=== PATIENT | male | born 2000 | race Caucasian/White ===

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

== ENCOUNTER 2021-12-03 08:35 | Emergency (ER) | payer OTHER, SELFPAY ==
[2021-12-03] VITALS (11 sets, daily range): BP systolic 115–148; BP diastolic 61–67; PULSE 55–89; RESP 18–19; TEMP 37; O2SAT 97–100
--- NOTE | ~2021-12-03 | XR_ITS ---
XR finger 1st LT min 2V DATE: 12/03/2021 09:02 INDICATION: Smashed finger between trailer infiltrate or hemorrhage TECHNIQUE: 3 views COMPARISON: None FINDINGS: There is a comminuted fracture of the distal phalanx of the first digit. There is a linear fracture line of the base of the distal thighs, extending into the interphalangeal joint. There is a linear oblique fracture through the metaphysis and shaft of the distal phalanx with comple te anterior displacement of the distal fracture fragment. IMPRESSION: Comminuted anteriorly displaced fracture of the distal phalanx Reviewed, dictated and finalized at location A.
[2021-12-03] MEDS: TETANUS,DIPHTHERIA,AC PERTUSSIS ADULT (0.5 ML) BOOSTRIX IM (08:55)
[2021-12-03] MEDS: HYDROcodone/acetaminophen (*CRX) 5-325 MG TABLET 1 TAB PO (08:55)
--- NOTE | 2021-12-03 09:19 | ED.UPPEXIN ---
HPI - Extremity Injury (Upper) General Chief Complaint: Extremity Injury, Upper <Colin Dietrich MD - Last Filed: 12/03/21 12:25> Stated Complaint: injury to thumb on left hand <Colin Dietrich MD - Last Filed: 12/03/21 12:25> Time Seen by Provider: 12/03/21 08:39 <Colin Dietrich MD - Last Filed: 12/03/21 12:25> History of Present Illness HPI narrative: Patient is a 21-year-old male who presents ER with injury to the left thumb. He is attempting to connect a motorcycle trailer to a trailer hitch when it rolled and smashed his thumb. He has deformity distal to the DIP. He has decreased sensation over the dorsal aspect of the distal tip of the thumb but normal sensation over the tip. He has difficulty with extension due to the deformity. Unknown last tetanus shot. He is right-hand dominant. <Colin Dietrich MD - Last Filed: 12/03/21 12:25> Related Data Allergies/Adverse Reactions: Allergies Allergy/AdvReac Type Severity Reaction Status Date / Time No Known Allergies Allergy Verified 08/31/19 19:07 <Colin Dietrich MD - Last Filed: 12/03/21 12:25> Review of Systems Review of Systems: All systems reviewed & are unremarkable except as noted in HPI and below <Colin Dietrich MD - Last Filed: 12/03/21 12:25> Musculoskeletal: Musculoskeletal: Reports arthralgias and Reports joint swelling <Colin Dietrich MD - Last Filed: 12/03/21 12:25> Integumentary/Breasts: Skin/Breast: Denies erythema and Denies rash <Colin Dietrich MD - Last Filed: 12/03/21 12:25> Comments: Left thumb laceration <Colin Dietrich MD - Last Filed: 12/03/21 12:25> Neurologic: Denies syncope, Denies headache(s), Reports focal weakness and Reports numbness <Colin Dietrich MD - Last Filed: 12/03/21 12:25> PMFSH Past Medical History Medical History: Medical History (Updated 12/03/21 @ 12:24 by Colin Dietrich MD) Healthy adult male <Colin Dietrich MD - Last Filed: 12/03/21 12:25> Surgical History Surgical History: Surgical History History of circumcision <Colin Dietrich MD - Last Filed: 12/03/21 12:25> Social History Social History: Social History (Updated 08/31/19 @ 19:26 by Lucy Dunham MD) Smoking status: Never smoker Alcohol intake: never Substance use: current Substance use type: marijuana <Colin Dietrich MD - Last Filed: 12/03/21 12:25> Exam Narrative: GENERAL: Well-appearing, well-nourished, and in no acute distress. HEAD: Normocephalic, atraumatic. CHEST: Clear to auscultation. No respiratory distress. HEART: Regular rate and rhythm. Normal peripheral pulses. EXTREMITIES: Focused exam of the left thumb shows laceration distal to the DIP but proximal to the cuticle. Unable to extend this part of the thumb due to the deformity. Sharp touch decreased around the nailbed on the dorsal aspect but normal sensation over the fat pad of the thumb. Flexion intact. SKIN: Warm, dry, no rash. NEURO: Alert and oriented x3. PSYCH: Normal mood and affect. <Colin Dietrich MD - Last Filed: 12/03/21 12:25> Course Course Emergency Course: Discussed case with Dr. Onela. He would like the thumb irrigated and closed and then placed in a splint. He will then see the patient this week in clinic and schedule surgery for pinning. He would also like the patient to receive oral cephalexin 500 mg 3 times daily at home. <Colin Dietrich MD - Last Filed: 12/03/21 12:25> Vital Signs Vital signs: Vital Signs Temperature 98.6 F 12/03/21 08:45 Pulse Rate 89 12/03/21 08:45 Respiratory Rate 19 12/03/21 08:45 Blood Pressure 128/67 12/03/21 08:45 Pulse Oximetry 99 12/03/21 08:45 Oxygen Delivery Room Air 12/03/21 08:45 Temperature 98.6 F 12/03/21 08:45 Pulse Rate 55 L 12/03/21 12:12 Respiratory Rate 18 12/03/21 12:12 Blood Pressure 148/66 H
[2021-12-03] MEDS: ceFAZolin 2 GM/D5W 50 ML 2 GM/50 ML BAG IVPB (10:22)
== END 2021-12-03 12:20 | disposition home or self-care (01) ==
PROVIDERS: Emergency Provider Emergency Medicine; PCP Physician Assistant
DX: S62.522B Displaced fracture of distal phalanx of left thumb, initial encounter for open fracture (principal); W23.0XXA Caught, crushed, jammed, or pinched between moving objects, initial encounter; F12.90 Cannabis use, unspecified, uncomplicated; Z23 Encounter for immunization
CPT/HCPCS: 12002; 29130; 73140; 90471; 90715; 96365; 99284; A9270; J0690

== ENCOUNTER 2021-12-08 01:14 | Day surgery (SDC) | payer OTHER, SELFPAY ==
[2021-12-05 14:21] VITALS: BMI 27.4
--- NOTE | 2021-12-05 14:26 | PC.NURSE ---
Report to the Outpatient Waiting Room, entrance under the green pavilion located off [facility], at time 0700 on date 12/08/21. OR Time: 0900. Time changes happen often and if your time is changed the preop area will call you the afternoon before. - You and your visitor will be asked to self-screen and do not enter if you have any COVID symptoms. - Only one visitor and NO children visitors are allowed at this time. - The patient visitor is requested to leave or wait in car when not with patient due to restrictions. - A mask is required within the hospital. Patients may have clear liquids (water, carbonated beverages, clear teas, apple juice) until 3 hours prior to surgery with a maximum of 20 ounces. - No food from midnight until time of surgery Take the following medications with a SIP of water the morning of surgery: CEPHALEXIN, PAIN PILL IF NEEDED Medications to discontinue per physician: N/A Date to take last dose: N/A Please no make-up, nail kazakh, hairspray, perfume, deodorant, or body powder the day of surgery. No jewelry (including any body piercings) or valuables the day of surgery, leave them at home. Please take a shower or bath the night before, or the morning of, surgery with an antibacterial soap. Wear comfortable, loose fitting clothing. - Jewelry must be removed prior to entering the operating room. Rings and piercings that are not removed may be cut off. - The hospital will not accept responsibility for valuables. - Please leave all valuables, including medications, at home the day of surgery. If you are going home after surgery, a licensed dedicated driver must drive you home. - NO public transportation without another adult. - We recommend that an adult stay with you for 24 hours following discharge. - We also recommend that you do not drive, make important decision, drink alcoholic beverages, or take any drugs that were not prescribed by your health care provider for at least 24 hours after your discharge time. Follow any additional instructions given to you from your surgeon. If you or anyone in your household have experienced Covid symptoms in the past week, please notify your surgeon or the nurse liaison at the phone number below for possible testing. Telephone instructions given to PT Lucy MILAN and asked if any additional questions and then verbalized understanding. Patient advised to call surgeon office or pre surgery nurse liaison [phone] if any additional questions.
--- NOTE | 2021-12-07 12:54 | WPDANESEPPF ---
Anes - Initial Pre Proc Eval Procedure: Operation Date: 12/08/21 09:00 Proposed Procedures p Open or Closed Reduction with Internal Fixation Left Thumb Distal Phalanx - Catarino Oneal MD Date/Time: 12/07/21 12:54 Surgeon: Catarino Oneal MD Pre Op Diagnosis: open fx left thumb distal phalanx Patient Data Age: 21 Gender: M Height: 1.68 m Weight: 77.11 kg Allergies Allergy/AdvReac Type Severity Reaction Status Date / Time No Known Allergies Allergy Verified 12/08/21 06:40 Home Medications Medication Instructions Recorded Confirmed Type cephalexin 500 mg capsule 500 mg PO Q8H 14 days #42 caps 12/03/21 12/08/21 Rx hydrocodone 5 mg-acetaminophen 325 1 tablet PO Q6H PRN pain #20 tabs 12/03/21 12/05/21 Rx mg tablet Patient hx anesthesia problems: none Family hx anesthesia problems: none Results Review: All pre-operative results and documents have been reviewed as part of the pre-operative evaluation. [facility] Past Medical History Medical History (Updated 12/04/21 @ 00:00 by Dayton Poon) Healthy adult male Surgical History Surgical History History of circumcision Social History Social History (Updated 08/31/19 @ 19:26 by Lucy Dunham MD) Smoking status: Never smoker Alcohol intake: never Substance use: never Substance use type: does not use Living arrangements: with family Spiritual care concerns: No Anes - Eval Final PreProcedure Day of Procedure 12/07/21 12:54 Patient weight: overweight Heart: regular rate and rhythm Lungs: clear to auscultation Airway: Mallampati scale class II Neurological: alert and oriented Last oral intake: >/= 8 hours ASA classification: I Emergent: no Anesthetic plan: proceed Anesthesia type and monitoring: general GIVS and standard monitoring Results Review: All pre-operative results and documents have been reviewed as part of the pre-operative evaluation. Informed Consent: The patient's anesthetic plan and its attendant risks and benefits were discussed with the patient/family/POA. Questions were solicited and answers provided to the satisfaction of the patient/family/POA.
--- NOTE | ~2021-12-08 | XR_ITS ---
EXAMINATION: XR surgery orthopedic DATE: 12/08/2021 09:46 INDICATION: Left thumb fracture TECHNIQUE: 2 fluoroscopic images of the left thumb were obtained during procedure performed by Dr. Timmons. Radiologist was not present for the imaging or procedure. The amount of fluoroscopy time used du ring this procedure was 1.0 minutes. COMPARISON: None. FINDINGS: Interval reduction and percutaneous pin fixation of a comminuted intra-articular fracture of the left first distal phalanx. The 2 axially directed pins extending from the tuft of the distal phalanx acro ss the interphalangeal joint and into the proximal aspect of the proximal phalanx. Alignment is near- anatomic with no discernible fracture gap or incongruity at the articular cortex. No other fractures identified. IMPRESSION: 1. Near-anatomic alignment post reduction percutaneous pin fixation of a comminuted intra-articular f racture of the left first distal phalanx. Reviewed, dictated and finalized at location A. IMPRESSION: 1. Near-anatomic alignment post reduction percutaneous pin fixation of a commin uted intra-articular fracture of the left first distal phalanx.
[2021-12-08 06:40] VITALS: BP 144/78; PULSE 77; RESP 14; TEMP 37.1; O2SAT 100; BMI 26.9
[2021-12-08] MEDS: ACETAMINOPHEN 500 MG TABLET 1000 MG PO (07:05)
[2021-12-08] MEDS: LACTATED RINGERS 1,000 ML 30 ML IV CONT ×2 (07:10→10:12)
--- NOTE | 2021-12-08 07:11 | WPDHPUPDATE1 ---
History and Physical Update Update Date/Time: 12/08/21 07:11 History and Physical has been reviewed, including an updated exam of the patient. There are NO changes in the patient's condition. Risks, benefits, and alternatives have been discussed and questions answered. Patient agrees to proceed with procedure.
[2021-12-08] MEDS: KETOROLAC 15 MG/ML VIAL (*BKC) IV PUSH (07:16)
[2021-12-08] MEDS: ceFAZolin 2 GM/D5W 50 ML 2 GM/50 ML BAG IVPB (08:43)
[2021-12-08] MEDS: LIDO 1%/EPINEPHRINE 1:100,000 10 ML VIAL INFILTRATE (09:34)
[2021-12-08 09:47] VITALS: BP 85/40; PULSE 59; RESP 14; O2SAT 95
[2021-12-08 10:15] VITALS: BP 104/62; PULSE 52; RESP 16; O2SAT 98
--- NOTE | 2021-12-08 10:22 | W.PM.PROC2 ---
Procedure Note - Detailed Date of Procedure 12/08/21 Pre-op Diagnosis open fx left thumb distal phalanx Post-op Diagnosis Same Procedure Performed Closed reduction and internal C-wire fixation of a comminuted fracture of the distal phalanx left thumb Surgeon Catarino Oneal MD Migration Agent Nicanor Anesthesia MAC Indications Displaced comminuted fracture with laceration previously closed in the ER and nail injury Description of Procedure Marked in the holding area. The patient was taken to the operating room and placed supine on the operating table he was IV sedation. Left upper extremity draped in fashion. A time-out held and confirmed. The thumb was blocked % lidocaine epinephrine. No tourniquet was utilized. Patient's sutures remained which extended across the dorsum the distal phalanx at the level of nail fold. Couple of sutures were added to this to tighten up the repair. The C-arm was available to us and multiple images taken. A 0.035 in C-wire was driven distal to proximal under C-arm control this crosses the fracture into the base of the distal phalanx across the interphalangeal joint and into solid metaphyseal bone. The 2nd C-wire a 0.045 in was driven adjacent and parallel to the 1st. It was driven all the way to the base of the proximal phalanx. Images show adequate reduction of the several fractures and good placement of the pins. A soft bulky bandage was applied. He was discharged from the operating stable condition. He received 2 g of Ancef today. He has some antibiotics to finish up at home. He was also discharged today with a prescription for oxycodone 5/325 7. Estimated Blood Loss -1.00 Tourniquet Time 0 Drains No Packing No Pathology None sent Complications No immediate complications Condition Stable Disposition Same day
[2021-12-08 10:45] VITALS: BP 116/70; PULSE 62; RESP 16
[2021-12-08 11:06] VITALS: BP 117/60; PULSE 68; RESP 16
== END 2021-12-08 11:15 | disposition home or self-care (01) ==
PROVIDERS: PCP Physician Assistant; Visit Provider Plastic Surgery
PROC: (CPT 26756; principal; 2021-12-08 09:00)
DX: S62.522B Displaced fracture of distal phalanx of left thumb, initial encounter for open fracture (principal); X58.XXXA Exposure to other specified factors, initial encounter
CPT/HCPCS: 26756; 99199; A9270; C1713; J0690; J1885; J2250; J2704; J3010; J7120

== ENCOUNTER 2022-01-19 09:38 | Outpatient (CLI) | payer OTHER, SELFPAY ==
--- NOTE | ~2022-01-19 | XR_ITS ---
XR finger 1st LT min 2V 01/19/2022 09:59 Indication: Follow-up left thumb fracture status post intraoperative fixation Procedure: 3 views left first finger Comparison: 12/03/2021 Findings: Comminuted fracture left first distal phalanx transfixed by 2 K wires. Osteopenia. Fracture fragments in near-anatomic alignment. No foreign bodies in the soft tissues. Impression: 1: Near-anatomic alignment of comminuted fracture involving the left first distal phalanx transfixed by 2 K wires. Reviewed, dictated and finalized at location B. Impression: 1: Near-anatomic alignment of comminuted fracture involving the left first dist al phalanx transfixed by 2 K wires.
== END 2022-01-19 09:39 | disposition home or self-care (01) ==
LOC: ANHIMG 09:45
PROVIDERS: PCP Physician Assistant; Visit Provider Plastic Surgery
DX: S62.522D Displaced fracture of distal phalanx of left thumb, subsequent encounter for fracture with routine healing (principal); X58.XXXD Exposure to other specified factors, subsequent encounter
CPT/HCPCS: 73140

== ENCOUNTER 2022-05-19 10:38 | Emergency (ER) | payer OTHER, SELFPAY ==
--- NOTE | ~2022-05-19 | CT_ITS ---
EXAMINATION: CT brain wo con DATE: 05/19/2022 13:54 INDICATION: Fall with head injury TECHNIQUE: Computed tomography (CT) of the head was performed without intravenous contrast. Sagittal and coronal reconstructions were performed. The mA was adjusted according to patient size. Iterative reconstruction technique was employed. The dose-length product was 605.33 mGy-cm. COMPARISON: None FINDINGS: No fracture. No acute intracranial hemorrhage, acute infarction or abnormal extra axial fluid collect ion. Ventricles are normal and symmetric. No mass/mass effect. The orbits, paranasal sinuses and mast oid air cells are normal. IMPRESSION: 1. Normal head CT. Reviewed, dictated and finalized at location A. ENT EDUCATION SPECIALIST IMPRESSION: 1. Normal head CT.
--- NOTE | ~2022-05-19 | CT_ITS ---
EXAMINATION: CT cervical spine wo con DATE: 05/19/2022 13:54 INDICATION: Fall with head injury TECHNIQUE: Computed tomography (CT) of the cervical spine was performed without intravenous contrast. Automated exposure control and iterative reconstruction technique were employed. The dose-length pro duct was 360.69 mGy-cm. COMPARISON: None FINDINGS: Straightening of the normal cervical lordosis. No spondylolisthesis or facet subluxation. Vertebral b roderick and disc heights are normal. No fracture. Cervical facet and uncovertebral joints are normal. No neural foraminal or central canal stenosis. Cervical soft tissues are unremarkable. Visualized apices of the lungs are clear. IMPRESSION: 1. Straightening of the normal cervical lordosis which is likely positional but could be seen with mu scle spasm. No other osseous abnormalities. Reviewed, dictated and finalized at location A. STRY CONTRACTOR IMPRESSION: 1. Straightening of the normal cervical lordosis which is likely positional but could be seen with muscle spasm. No other osseous abnormalities.
--- NOTE | ~2022-05-19 | CT_ITS ---
EXAMINATION: CT abdomen pelvis wo con DATE: 05/19/2022 13:54 INDICATION: Nausea and vomiting. Flank pain. TECHNIQUE: Computed tomography (CT) of the abdomen and pelvis was performed without intravenous contr ast. Automated exposure control and iterative reconstruction technique were employed. The dose-length product was 343.48 mGy-cm. COMPARISON: None. FINDINGS: The visualized portions of the lung bases are clear without pneumonia or pleural effusion. The heart size is normal. No pericardial effusion. The liver, gallbladder, spleen, pancreas, adrenal glands, and kidneys are normal. There is no urolithiasis. There are no dilated loops of bowel. The ap pendix is normal. There are no pathologically enlarged lymph nodes. There is no free intraperitoneal fluid. There are chronic bilateral L5 pars defects. There is 3 mm anterolisthesis of L5 on S1. IMPRESSION: 1. No urolithiasis. Reviewed, dictated and finalized at location A. UTER AIDED DESIGN TECHNICIAN IMPRESSION: 1. No urolithiasis.
[2022-05-19 10:49] VITALS: BP 159/87; PULSE 56; RESP 16; TEMP 37.1; O2SAT 99
[2022-05-19 11:59] LABS: Basophils Percent Auto 0.3 % (0.2-1.2); Eosinophils Percent Auto 0.1 % (0-4.4); Hematocrit 47.1 % (42.0-52.0); Hemoglobin 16.6 g/dL (14.0-18.0); Immature Granulocyte Absolute 0.04 K/mm3 (0.00-0.031); Immature Granulocyte Percent A 0.3 % (0-0.5); Lymphocytes Absolute Auto 1.95 K/mm3 (0.9-3.2); Lymphocytes Percent Auto 16.3 % (18.3-44.2); Mean Corpuscular HGB Conc 35.2 g/dl (32-36); Mean Corpuscular Hemoglobin 30.1 pg (26-34); Mean Corpuscular Volume 85.3 fl (80-100); Mean Platelet Volume 10.1 fl (7.4-10.4); Monocytes Absolute Auto 0.8 K/mm3 (0.1-0.6); Monocytes Percent Auto 6.5 % (2.6-8.5); Neutrophils Absolute Auto 9.1 K/mm3 (1.3-6.7); Neutrophils Percent Auto 76.5 % (45.5-73.1); Platelet Count Result 299 k/mm3 (150-375); Red Blood Count 5.52 M/mm3 (4.6-6.20); Red Cell Distribution Width 12.6 % (11.5-14.5); White Blood Count 11.9 K/mm3 (4.5-10.0)
[2022-05-19 12:00] VITALS: PULSE 71; RESP 18; O2SAT 100
[2022-05-19 12:33] LABS: Appearance Urine Clear (Clear); Bacteria Urine None Seen /hpf; Bilirubin Urine Negative (Negative); Blood Urine Negative (Negative); Color Urine Dark Yellow (Yellow); Glucose Urine UA Negative (Negative); Ketones Urine 4+ mg/dL (Negative); Leukocyte Esterase Ur Negative LEU/UL (Negative); Nitrate Urine Negative (Negative); Protein Urine Trace mg/dL (Negative); Specific Grav Ur 1.035 (1.001-1.035); Squamous Epithelial Cell Urine None seen /hpf (Few); Urobilinogen Urine 0.2 mg/dL (<2.0); WBC Urine 0-5 /hpf
[2022-05-19 12:37] LABS: Mucus Urine Present /lpf
--- NOTE | 2022-05-19 12:43 | ED.GENADULT ---
HPI - General Adult General Chief complaint: Neck Pain/Injury Stated complaint: n/v, neck pain Time Seen by Provider: 05/19/22 12:35 Source: patient Mode of arrival: ambulatory Limitations: no limitations History of Present Illness HPI narrative: This is a 21-year-old male comes in with chief complaint of neck stiffness onset x 2 months and worse in the past week. Patient reports a head injury back in February and he was never seen for this. Denies any headache, however he has been having low-grade neck pain and stiffness since the injury. He was seen by chiropractor recently and notes no relief. Patient has secondary complaints of nausea and vomiting. This has been going on for the past week. States he has been trying to take Aleve for the pain but unable to as he has been vomiting. Reports he is not nauseous here in the department. Also reports occasional night sweats. Patient also notes right flank pain. Denies any urinary symptoms. Denies any recorded fevers or chills. Denies chest pain, shortness of breath, abdominal pain, numbness, weakness. Related Data Allergies Allergy/AdvReac Type Severity Reaction Status Date / Time No Known Allergies Allergy Verified 05/19/22 10:54 Review of Systems Review of Systems: CONSTITUTIONAL: Denies fever, chills, or sweats. EYES: Denies visual changes, redness, or discharge. ENT: Denies rhinorrhea, congestion, sore throat, or otalgia. CARDIOVASCULAR: Denies chest pain, palpitations, or edema. RESPIRATORY: Denies cough or dyspnea. GASTROINTESTINAL: Endorses right flank pain. Denies abdominal pain.endorses nausea, vomiting, and loose stools. (Resolved) GENITOURINARY: Denies dysuria or hematuria. SKIN: Denies rash or itching. MUSCULOSKELETAL: Denies back pain, joint pain, or myalgia. NEUROLOGIC: Endorses headache. endorses neck pain and stiffness. Denies numbness, dizziness, or weakness. PSYCHIATRIC: Denies anxiety or depression. [facility] Past Medical History Medical History (Updated 05/19/22 @ 14:48 by Jovon Leos PA-C) Healthy adult male Surgical History Surgical History History of circumcision Social History Social History (Updated 06/07/20 @ 19:26 by Lucy Dunham MD) Smoking status: Never smoker Alcohol intake: never Substance use: never Substance use type: does not use Living arrangements: with family Spiritual care concerns: No Exam Narrative: GENERAL: Well-appearing, well-nourished, and in no acute distress. HEAD: Normocephalic, atraumatic. EYES: PERRLA and EOMI. ENT: Nares clear, no rhinorrhea or epistaxis. Mucous membranes moist. Oropharynx without tonsillar hypertrophy exudate or other lesions. NECK: Supple. No adenopathy or masses. Kernig and Brudzinski signs are negative. CHEST: No respiratory distress. Clear to auscultation. No wheezes rales or rhonchi HEART: Regular rate and rhythm. No murmur heard. Normal peripheral pulses. ABDOMEN: Minimal right flank tenderness. Soft, nontender, nondistended, normal active bowel sounds. EXTREMITIES: Normal range of motion. No edema. SKIN: Warm, dry, no rash. NEURO: Alert and oriented x3. No focal deficits. PSYCH: Normal mood and affect. Course Course Emergency Course: Patient denies any medications for nausea or pain at this point. Vital Signs Vital signs: Vital Signs Temperature 98.7 F 05/19/22 10:49 Pulse Rate 56 L 05/19/22 10:49 Respiratory Rate 16 05/19/22 10:49 Blood Pressure 159/87 H 05/19/22 10:49 Pulse Oximetry 99 05/19/22 10:49 Oxygen Delivery Room Air 05/19/22 10:49 Temperature 98.7 F 05/19/22 10:49 Pulse Rate 84 05/19/22 15:25 Respiratory Rate 18 05/19/22 15:25 Blood Pressure 119/64 05/19/22 15:25 Pulse Oximetry 98 05/19/22 15:25 Oxygen Delivery Room Air 05/19/22 12:00 Medical Decision Making MDM Narrative Medical decision making narrative: This is a 21-year-old male who pres
[2022-05-19 12:54] LABS: Add Urine Microscopic? YES
[2022-05-19 13:04] LABS: Alanine Aminotransferase 24 U/L (6-50); Alkaline Phosphatase 112 U/L (38-126); Anion Gap 9 mmol/L (8-16); Aspartate Amino Transferase 29 U/L (17-59); Bilirubin,Total 0.6 mg/dL (0.2-1.3); Blood Urea Nitrogen 17 mg/dL (9-20); Calcium 9.4 mg/dL (8.4-10.2); Carbon Dioxide 25 mmol/L (22-30); Chloride 104 mmol/L (98-107); Estimated CRCL calculation 131 ml/min; Estimated Glomerular Filt Rate > 60; Glucose 94 mg/dL (65-110); Lipase 47 U/L (23-300); Sodium 138 mmol/L (137-145)
[2022-05-19 13:14] LABS: CRP < 0.5 mg/dL (<1.0)
[2022-05-19 15:25] VITALS: BP 119/64; PULSE 84; RESP 18; O2SAT 98
== END 2022-05-19 15:28 | disposition home or self-care (01) ==
PROVIDERS: Emergency Medicine; Emergency Provider Physician Assistant; PCP Internal Medicine Gastroenterology
DX: M54.2 Cervicalgia (principal); K52.9 Noninfective gastroenteritis and colitis, unspecified
CPT/HCPCS: 36415; 70450; 72125; 74176; 80053; 81001; 83690; 85025; 86140; 99284

== ENCOUNTER 2024-03-15 06:48 | Emergency (ER) | payer OTHER, SELFPAY ==
[2024-03-15 06:55] VITALS: BP 141/81; PULSE 85; RESP 16; TEMP 36.7; O2SAT 100
[2024-03-15 07:22] LABS: Alanine Aminotransferase 19 U/L (6-50); Alkaline Phosphatase 101 U/L (38-126); Anion Gap 10 mmol/L (4-12); Aspartate Amino Transferase 25 U/L (17-59); Bilirubin,Total 0.7 mg/dL (0.2-1.3); Blood Urea Nitrogen 18 mg/dL (9-20); Calcium 9.5 mg/dL (8.4-10.2); Carbon Dioxide 23 mmol/L (22-30); Chloride 106 mmol/L (98-107); Estimated CRCL calculation 106 ml/min; Estimated Glomerular Filt Rate > 60; Glucose 101 mg/dL (65-110); Lipase 347 U/L (23-300); Potassium 3.9 mmol/L (3.4-5.0); Sodium 139 mmol/L (137-145)
[2024-03-15 07:31] VITALS: BP 130/71; PULSE 63; RESP 12; O2SAT 97
[2024-03-15] MEDS: BELLADONNA ALK/PHENOB ELIX 10 ML, MAG HYDROX/ALUMINUM HYD/SIMETH 30 ML, LIDOCAINE 2% VI... PO (07:37)
[2024-03-15 08:39] VITALS: BP 125/73; PULSE 65; RESP 17; O2SAT 98
[2024-03-15 08:50] LABS: Add Urine Microscopic? YES; Appearance Urine Clear (Clear); Bacteria Urine None Seen /hpf; Bilirubin Urine Negative (Negative); Blood Urine Negative (Negative); Color Urine Yellow (Yellow); Glucose Urine UA Negative (Negative); Ketones Urine 2+ mg/dL (Negative); Leukocyte Esterase Ur Negative LEU/UL (Negative); Nitrate Urine Negative (Negative); Non Pathogenic Casts 0-2; Protein Urine 1+ mg/dL (Negative); RBC Urine 0-2 /hpf (0-2); Squamous Epithelial Cell Urine None Seen /hpf (Few); Urobilinogen Urine 0.2 mg/dL (<2.0); WBC Urine 0-5 /hpf (0-3); pH Urine 5.5 (5.0-9.0)
--- NOTE | 2024-03-15 09:28 | ED_ITS ---
HPI - Abdominal Pain General Chief Complaint: Abdominal Pain Stated Complaint: abdominal pain Time Seen by Provider: 03/15/24 07:05 History of Present Illness HPI narrative: Patient is a 23-year-old male who presents ER with epigastric fullness. Ongoing over last day. Associated with bloating and belching. Normal bowel movements. Has acidic taste coming up the back of his throat. Improved with simethicone when he took it but he only did that 1 time. No vomiting. No fevers or chills. Related Data Allergies Allergy/AdvReac Type Severity Reaction Status Date / Time No Known Allergies Allergy Verified 05/19/22 10:54 Review of Systems 2 Review of Systems: All systems reviewed & are unremarkable except as noted in HPI and below Constitutional: Constitutional: Reports no additional constitutional complaints ENT: Reports system reviewed and no additional complaints, except as documented Cardiovascular: Cardiovascular: Reports no additional cardiovascular complaints Respiratory: Respiratory: Reports no additional respiratory complaints Gastrointestinal: Gastrointestinal: Denies abdominal pain, Reports bloating, Reports heartburn, Denies nausea and Denies vomiting PMF Past Medical History Medical History (Updated 03/15/24 @ 09:34 by Colin Dietrich MD) Healthy adult male Surgical History Surgical History History of circumcision Social History Social History (Updated 08/31/19 @ 19:26 by Lucy Dunham MD) Smoking status: Never smoker Alcohol intake: never Substance use: never Substance use type: does not use Living arrangements: with family Spiritual care concerns: No Exam 2 Narrative: GENERAL: Well-appearing, well-nourished, and in no acute distress. HEAD: Normocephalic, atraumatic. ENT: Mucous membranes moist. CHEST: Clear to auscultation. No respiratory distress. HEART: Regular rate and rhythm. Normal peripheral pulses. ABDOMEN: Soft, nontender, nondistended, normal active bowel sounds. EXTREMITIES: Normal range of motion. No edema. SKIN: Warm, dry, no rash. NEURO: Alert and oriented x3. PSYCH: Normal mood and affect. Course Course Emergency Course: Improved with GI cocktail. Few ketones in urine. Otherwise CMP/ lipase unremarkable. Discharge home with supportive care/PPI. Vital Signs Vital signs: Vital Signs Temperature 98.1 F 03/15/24 06:55 Pulse Rate 85 12/21/24 06:55 Respiratory Rate 16 03/15/24 06:55 Blood Pressure 141/81 H 03/15/24 06:55 Pulse Oximetry 100 03/15/24 06:55 Oxygen Delivery Room Air 03/15/24 06:55 Temperature 98.1 F 03/15/24 06:55 Pulse Rate 65 03/15/24 08:39 Respiratory Rate 17 03/15/24 08:39 Blood Pressure 125/73 03/15/24 08:39 Pulse Oximetry 98 03/15/24 08:39 Oxygen Delivery Room Air 03/15/24 06:55 MDM - Abdominal Pain Lab Data 03/15/24 07:02 Labs: Lab Results 03/15/24 03/15/24 Range/Units 07:02 08:35 Sodium 139 (137-145) mmol/L Potassium 3.9 (3.4-5.0) mmol/L Chloride 106 (98-107) mmol/L Carbon Dioxide 23 (22-30) mmol/L Anion Gap 10 (4-12) mmol/L BUN 18 (9-20) mg/dL Creatinine 0.90 (0.7-1.3) mg/dL Estim Creat Clear Calc 106 ml/min Estimated GFR > 60 (59 - ) Glucose 101 (65-110) mg/dL Calcium 9.5 (8.4-10.2) mg/dL Total Bilirubin 0.7 (0.2-1.3) mg/dL AST 25 (17-59) U/L ALT 19 (6-50) U/L Alkaline Phosphatase 101 (38-126) U/L Total Protein 8.0 (6.3-8.2) g/dL Albumin 5.0 (3.5-5.1) g/dL Lipase 347 H (23-300) U/L Urine Color Yellow (Yellow) Urine Appearance Clear (Clear) Urine pH 5.5 (5.0-9.0) Ur Specific [place] 1.030 (1.001-1.035) Urine Protein 1+ H (Negative) mg/dL Urine Glucose (UA) Negative (Negative) mg/dL Urine Ketones 2+ H (Negative) mg/dL Ur Blood (Man) Negative (Negative) Urine Nitrate Negative (Negative) Urine Bilirubin Negative (Negative) Urine Urobilinogen 0.2 (<2.0) mg/dL Leukocyte Esterase Rfl Negative (Negative) DIONISIO/UL Urine RBC 0-2 (0-2) /hpf Urine WBC 0-5 (0-3) /hpf Ur Squamous Epith Cells None seen (Few) /hpf Urine Bacteria None seen /hpf Urine Casts 0-2 Discharge Plan Discharge Clinical Impression: GERD (gastroesophageal reflux disease) Patient Disposition: Home, Self-Care Condition: Stable Instructions: GERD (Gastroesophageal Reflux Disease) (ED) Additional Instructions: Return to the emergency department if you develop severe abdominal pain, severe nausea and vomiting to the point where you are unable to keep down fluids, if you develop chest pain or difficulty breathing, blood in your stool, dizziness or fainting, or if you develop any other new or concerning symptoms as these could be signs of more serious medical illness. Try to stay well hydrated. Patient Language: Turkmen Prescriptions: New simethicone 125 mg capsule 125 mg PO QID Qty: 20 0RF Rx Instructions: administer after meals and at bedtime pantoprazole 20 mg tablet,delayed release (DR/EC) 20 mg PO HS 28 Days Qty: 28 0RF No Action cephalexin 500 mg capsule 500 mg PO Q8H 14 Days Qty: 42 0RF hydrocodone-acetaminophen 5-325 mg tablet 1 tablet PO Q6H PRN (Reason: pain) Qty: 20 0RF oxycodone-acetaminophen 5-325 mg tablet 1 tablet PO Q6H MDD 6 PRN (Reason: pain) Qty: 7 0RF tizanidine 2 mg capsule 2 mg PO Q8H PRN (Reason: muscle spasticity) Qty: 30 0RF Follow-up/Referrals: Sreedhar,Angela Richards MD [Primary Care Provider] -
[2024-03-15 09:46] VITALS: BP 130/78; PULSE 61; RESP 18; TEMP 36.6; O2SAT 99
--- OUTSIDE RECORDS SUMMARY | 2024-03-22 03:22 | XMS_ITS | Encounter Summary ---
Author Organization [facility] Address [address] [place] [address] Care Team Providers Care Cook Chef Name Role Phone Michaelle Jolley COIN PURSE ASSEMBLER-BULK RECEIVER Primary Care Provider + Encounter Details Date Type Department Care Team (Latest Contact Info) Description 02/07/2011 9:02 AM LANDSCAPING AND GROUNDSKEEPING LABORER - 02/07/2011 11:59 PM LANDSCAPING AND GROUNDSKEEPING LABORER Hospital Encounter [facility] Pediatrics - Radiology [address] [place] [address] Discharge Disposition: Home or Self Care Social History Tobacco Use Types Packs/Day Years Used Date Smoking Tobacco: Never Assessed Sex and Gender Information Value Date Recorded Sex Assigned at Not on file Gender Identity Not on file Sexual Orientation Not on file documented as of this encounter Plan of Treatment Not on file documented as of this encounter Procedures Procedure Name Priority Date/Time Associated Diagnosis Comments XR CLAVICLE LEFT 2VW Routine 02/07/2011 9:07 AM LANDSCAPING AND GROUNDSKEEPING LABORER Fracture of left clavicle documented in this encounter Results * XR CLAVICLE LEFT 2 VIEWS (02/07/2011 9:07 AM LANDSCAPING AND GROUNDSKEEPING LABORER) Anatomical Region Laterality Modality Upper Extremity, Chest Radiograp hic Imaging 02/07/2011 9:20 AM LANDSCAPING AND GROUNDSKEEPING LABORER Impressions 02/07/2011 11:39 AM LANDSCAPING AND GROUNDSKEEPING LABORER Distal left clavicular fracture. D: Domingo Rivera M.D. Narrative 02/07/2011 11:39 AM LANDSCAPING AND GROUNDSKEEPING LABORER Left clavicle, 2 views 02/07/2011 History: Unspecified part of closed fracture of clavicle Two views of the left clavicle were obtained. Comparison is made to the right clavicle. There is a fracture of the distal left clavicle. There is inferior displacement of the distal fracture fragment. The acromioclavicular joints are grossly symmetric. The visible portions of the lungs are clear. A small left cervical rib is identified. Procedure Note Shari Reyes MD - 02/07/2011 Left clavicle, 2 views 02/07/2011 History: Unspecified part of closed fracture of clavicle Two views of the left clavicle were obtained. Comparison is made to the right clavicle. There is a fracture of the distal left clavicle. There is inferior displacement of the distal fracture fragment. The acromioclavicular joints are grossly symmetric. The visible portions of the lungs are clear. A small left cervical rib is identified. IMPRESSION Distal left clavicular fracture. D: Domingo Rivera M.D. Iain Keane MD DIAGNOSTIC IMAGING O RDERABLES documented in this encounter Visit Diagnoses Not on filedocumented in this encounter Care Teams Cook Chef Relationship Specialty Start Date End Date Michaelle Jolley, COIN PURSE ASSEMBLER-BULK RECEIVER [address] [place], [place] [id number] PCP - General 01/16/11 documented as of this encounter
--- OUTSIDE RECORDS SUMMARY | 2024-03-22 03:22 | XMS_ITS | Continuity of Care Document ---
Author Organization [facility] Address [address] [place] [address] [address] [place] [address] Phone Care Team Providers Care Wastewater Plant Operator Name Role Phone Quezada OD, Fab Unavailable Unavailable Procedures Procedure Date Eye Exam & Treatment Refraction Eye Exam, New Patient Advance Directives Directive Yes / No Effective Date File Name No Information Encounters Encounter Description Practice Location Reason(s) For Visit Diagnoses Date Provider Providers Copied on Encounter [facility], [address] [place] [address] [address], [place], [place], [id number], tel:[phone] [facility] No Information 3-200 9 Quezada OD Fab. [address] [facility] , [address], [place], [place], [facility], [place]. tel:[phone] [facility], [address] [place] [address] [address], [place], [place], [id number], tel:[phone] [facility] No Information 6-200 7 Quezada OD Fab. [address] [facility] , [address], [place], [address], [place]. tel:[phone] Family History Family Member Type Diagnosis Age At Onset No Information Payers Payer name Insurance type Covered republican ID Authoriza tion(s) Medicaid [facility] [id number] Social History Type Description Quantity Date Captured Comments Sex Male Smoking Status No Information Chief Complaint And Reason For Visit No Information Reason For Referral Reason For Referral No Information History Of Present Illness Encounter Date Complaint History Of Prese nt Illness No Information Functional Status Date Functional Assessmen t No Information Instructions Date Instruction Additional Infor mation No Information Assessments Type Assessment Date No Information Patient Care Teams Name Effective Dates (start - stop) Status Members No Information
--- OUTSIDE RECORDS SUMMARY | 2024-03-22 03:22 | XMS_ITS | Patient Health Summary ---
Author Organization [facility] Address [address] [place] [address] Care Team Providers Care Sephora Product Consultant Name Role Phone Michaelle Jolley NOVELTY TWISTER TENDER-SOLDER LEVELER PRINTED CIRCUIT BOARDS Primary Care Provider + Note from [facility],non-owned Affiliates and Associated Physician Practices is amultiple site organization consisting of ambulatory clinics and hospital sitesin [place], [place], [place] and [place]. This disclosure is being madepursuant to the Care Everywhere program and may not contain all information available regarding this patient. Last updated 17.[facility] Allergies No known active allergies Medications * Be aware that medications may not be up to date on this document. Alwaysverify current medications with the patient. * ibuprofen (MOTRIN) 200 MG tablet Take 400 mg by mouth every 6 hours as needed for Pain Active Problems Problem Noted Date Diagnosed Date Episodic tension-type headache, not intractable 08/31/2015 Social History Tobacco Use Types Packs/Day Years Used Date Smoking Tobacco: Never Alcohol Use Standard Drinks/Week Comments Not Asked 0 (1 standard drink = 0.6 oz pur e alcohol) Sex and Gender Information Value Date Recorded Sex Assigned at Not on file Gender Identity Not on file Sexual Orientation Not on file Last Filed Vital Signs Vital Sign Reading Time Taken Comments Blood Pressure 114/76 12/23/2015 10:36 AM CDT Pulse - - Temperature - - Respiratory Rate - - Oxygen Saturation - - Inhaled Oxygen Concentration - - Weight 63.4 kg (139 lb 12.4 oz) 016 10:36 AM CDT Height 163.5 cm (5' 4.37 ) 12/23/2015 1 0:36 AM CDT Body Mass Index 23.72 12/23/2015 10:36 AM CDT Procedures * IMAGING/RADIOLOGY/XRAY RESULTS ORDER(Performed 04/13/2011) * XR CLAVICLE LEFT 2VW(Performed 02/07/2011) Performed for Fracture of left clavicle Results * IMAGING/RADIOLOGY/XRAY RESULTS ORDER (04/13/2011 8:55 PM TRACKMOBILE OPERATOR) Anatomical Region Laterality Modality Other Narrative Transcriptions Document, Scanned - 04/13/2011 8:55 PM CST Scanned Document IMAGING * XR CLAVICLE LEFT 2 VIEWS (02/07/2011 9:07 AM TRACKMOBILE OPERATOR) Anatomical Region Laterality Modality Upper Extremity, Chest Radiograp hic Imaging 02/07/2011 9:20 AM TRACKMOBILE OPERATOR Impressions 02/07/2011 11:39 AM TRACKMOBILE OPERATOR Distal left clavicular fracture. D: Domingo Rivera M.D. Narrative 02/07/2011 11:39 AM TRACKMOBILE OPERATOR Left clavicle, 2 views 02/07/2011 History: Unspecified [...] Iain Keane MD DIAGNOSTIC IMAGING O RDERABLES Care Teams Sephora Product Consultant Relationship Specialty Start Date End Date Michaelle Jolley, NOVELTY TWISTER TENDER-SOLDER LEVELER PRINTED CIRCUIT BOARDS [address] [place] [address] PCP - General 01/16/11
--- OUTSIDE RECORDS SUMMARY | 2024-03-22 03:22 | XMS_ITS | Clinical Summary ---
Author Organization [facility] Address [address] [place] [address] Care Team Providers Care Patrol Community Service Officer Name Role Phone Michaelle Jolley STEEL POST INSTALLER SUPERVISOR-LOAD BUILDER Primary Care Provider + Source Comments [facility],non-owned Affiliates and Associated Physician Practices is amultiple site organization consisting of ambulatory clinics and hospital sitesin [place], [place], [place] and [place]. This disclosure is being madepursuant to the Care Everywhere program and may not contain all information available regarding this patient. Last updated 17.[facility] Allergies No known active allergies Medications * Be aware that medications may not be up to date on this document. Alwaysverify current medications with the patient. Medication Sig Dispensed Refills Start Date End Date Status ibuprofen (MOTRIN) 200 MG tablet Take 400 mg by mouth every 6 hours as needed for Pain Active Active Problems Problem Noted Date Diagnosed Date Episodic tension-type headache, not intractable 08/31/2015 Overview (12/23/2015): Headaches that were more frequent during last school year (starting around Mar) and infrequent since the school ended and since then have not returned during this school year. Headaches without any migrainous character, localized to top of head, were severe enough to interfere with his functioning. Lifestyle factors were likely contributing to his headaches- inadequate sleep, stress, missing meals and dehydration. His neurological exam is normal and non focal. Taken together the headaches were secondary to stress. No concern for secondary causes of headache or other primary headache disorders Plan- ?? Lifestyle changes stressed ?? Parents to call with concerns Family History Medical History Relation Name Comments Cancer - Colon Father Migraine Father no longer has h eadaches, never took daily preventative medication Migraine Mother Takes daily Top amax Migraine Sister 2 Takes daily pre ventative medication, different then mom's Relation Name Status Comments Father Alive Mother Alive Sister 1 Alive Sister 2 Social History Tobacco Use Types Packs/Day Years [...] Mass Index 23.72 12/23/2015 10:36 AM CDT Plan of Treatment Health Maintenance Due Date Last Done Comments HIV SCREENING 2016 HPV VACCINE (1 - Male 3-dose series) 2016 HEPATITIS C SCREENING 06/13/2019 DTAP/TDAP/TD VACCINES (1 - Tdap) 2020 HEPATITIS B VACCINE (1 of 3 - 19+ 3-dose series) 2020 DEPRESSION SCREENING 03/26/2023 COVID-19 VACCINE (1 - 2023-2 5 season) 2023 INFLUENZA VACCINE (#1) 2023 ZOSTER VACCINE (1 of 2) 06/18/2051 HIB VACCINE Aged Out No longer eligi ble based on patient's age to complete this topic MENINGOCOCCAL VACCINE Aged Out No charles mansi eligible based on patient's age to complete this topic PNEUMOCOCCAL VACCINE Aged Out No long er eligible based on patient's age to complete this topic Care Teams Patrol Community Service Officer Relationship Specialty Start Date End Date Michaelle Jolley, STEEL POST INSTALLER SUPERVISOR-LOAD BUILDER [facility] [place] [address] PCP - General 01/16/11
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
--- OUTSIDE RECORDS SUMMARY | 2024-03-22 03:22 | XMS_ITS | Encounter Summary ---
Author Organization [facility] Address [address] [facility] [place] [address] Care Team Providers Care Recreation Therapy Director Name Role Phone Michaelle Jolley DELIVERER FOOD-PRODUCTION LINE ASSEMBLER Primary Care Provider + Reason for Visit * Reason Comments Headache c/o headaches for a couplke months, was c/o headaches everyday, stoppd a couple weeks ago Encounter Details Date Type Department Care Team (Latest Contact Info) Description 09/23/2015 8:31 AM CDT - 09/23/2015 11:59 PM CDT Hospital Encounter [facility] Pediatrics - Neurology [address] [place] [phone] Flavio Melendez MD [address] [place] [phone] Discharge Disposition: Home or Self Care Social History Tobacco Use Types Packs/Day Years Used Date Smoking Tobacco: Never Alcohol Use Standard Drinks/Week Comments Not Asked 0 (1 standard drink = 0.6 oz pur e alcohol) Sex and Gender Information Value Date Recorded Sex Assigned at Not on file Gender Identity Not on file Sexual Orientation Not on file documented as of this encounter Last Filed Vital Signs Vital Sign Reading Time Taken Comments Blood Pressure 110/60 09/23/2015 8:45 AM CDT Pulse - - Temperature - - Respiratory Rate - - Oxygen Saturation - - Inhaled Oxygen Concentration - - Weight 61.1 kg (134 lb 11.2 oz) 09/23/2015 8:45 AM CDT Height 162.1 cm (5' 3.82 ) 09/23/2015 8:45 AM CD T Body Mass Index 23.25 09/23/2015 8:45 AM CDT Body Mass Index Percentile 86.97% 09/23/2015 8:4 5 AM CDT Growth Chart: CDC (Boys, 2-2 0 Years) documented in this encounter Discharge Instructions * Patient Instructions* Flavio Melendez MD - 09/23/2015 9:45 AM CDT 1. Maintain good sleep hygiene and a regular schedule. 2. Regular meals, do not miss breakfast. 3. Take plenty of fluids. 4. Avoid caffeine in any form. 5. establish a regular exercise schedule. documented in this encounter Medications at Time of Discharge Medication Sig Dispensed Refills Start Date End Date ibuprofen (MOTRIN) 200 MG tablet Take 400 mg by mouth every 6 hours as needed for Pain documented as of this encounter H&P Notes * Flavio Melendez MD - 09/23/2015 10:06 AM CDT Patient Name: Harlan Velez III : 2000 Date Seen: 09/23/2015 Chief Complaint: Harlan is a 15 y.o. male who was referred by his PCP, Dr Michaelle Jolley, ERLINDA for a consultation regarding concerns for chronic headaches . The child is accompanied to this evaluation today by his mother, who provided the history. Records, including information provided on the intake form, were reviewed prior to visit and are included in this evaluation. History: Harlan started having headaches at the start of this new year. He was having them frequently, almost daily and he would need to sleep and take some medication to get over the pain. It was interfering With his ability to function when he returned home from school. The headaches start usually late in afternoon and get worse when he returns home. They are located over the top of head, are moderate in intensity, feel like pressure, not associated with nausea, vomiting or light/sound sensitivity. They last for hours and relieved by rest or ibuprofen. Since the school ended, he has experienced infrequent headaches- once every few weeks. He is fairly active person, but does not take his breakfast when he is going to school, is not drinking enough water and does not sleep enough at night. He usually gets 6 hrs or less of sleep. He avoids caffeine in all forms Review of Systems: Constitutional: Negative for fatigue, weight loss, weight gain, malaise. Eyes: Negative for scotomata bilaterally, double vision, visual loss bilaterally, glasses or contacts Ears, nose, mouth, and throat: Negative for hearing loss bilaterally, deafness bilaterally, tinnitus bilaterally, ear drainage bilaterally, sinus trouble Respiratory: Negative for shortness of breath, dyspnea on exertion, chronic cough, asthma Cardiovascular: Negative for palpitations, tachycardia, near-syncope, syncope, chest pain, fatigue,cyanosis Gastrointestinal: Negative for poor appetite, dysphagia, nausea, vomiting, epigastric pain, change in bowel habits Genitourinary:Negative for incontinence, dysuria, urinary tract infection Skin: Negative for pigmentation, rash, new lesion, lumps or bumps, hair changes Hematologic/lymphatic: Negative for anemia, bleeding disorder, fever, weight loss, swollen nodes Behavioral/Psych: Negative for depressed mood, cycling mood, crying spells, difficulty falling asleep, anxiety, impaired concentration Endocrine: Negative for thyroid nodule, cold intolernance, heat intolerance, polyphagia, polydipsia, polyuria, hair loss, skin dryness Current Outpatient Prescriptions Medication Sig Dispense Refill ??? ibuprofen (MOTRIN) 200 MG tablet Take 400 mg by mouth every 6 hours as needed for Pain No current facility-administered medications for this encounter. No Known Allergies Past Medical History No history on file. Past Medical History Diagnosis Date ??? Concussion neg hx ??? Asthma neg hx No past surgical history on file. Family History Family History Problem Relation Age of Onset ??? Migraine Mother Takes daily Topamax ??? Migraine Sister 15 Takes daily preventative medication, different then mom's ??? Migraine Father no longer has headaches, never took daily preventative medication ??? Cancer Colon Father 43 There is otherwise no family history of: developmental delay, learning problems, ADHD, autism, mental health disorders, genetic disorders, defects, multiple miscarriages, motor disorders. Social History History Social History Narrative Lives at home with Mom, Dad, and Sister. Going into 9th grade, performed well in 8th grade. Unsure of future goals/college. No summer plans. Spends time riding his bicycle and playing video games. Vital Signs: BP 110/60 mmHg Wt 61.1 kg (134 lb 11.2 oz) BMI 23.25 kg/m2 Head Circumference: No head circumference on file for this encounter. General: well developed, well nourished CV: RRR Resp: CTAB Abdomen: S, NT, BS+ Extr: No edema, +2 pulses Neurological Exam: MS: awake, alert, appropriate Cranial Nerves: II: Visual brown intact, Fundoscopic exam normal III:PERRLA III,IV,: EOMI, no nystagmus V: Facial sensation intact VII: Facial expressions symmetric VIII: Hearing intact to finger rub bilaterally IX: Palate elevates symmetrically X: Uvula midline XI: Shoulder shrug strong bilaterally XII: Tongue protrudes midline Motor: Abnormal Movements: none Bulk: normal Tone: normal Reflexes: 2+ throughout, plantar reflexes downgoing Strength: 5/5 in all extremities Sensory: Intact to light touch, pin prick, temperature and vibration Cerebellar: Normal FNF, RAJESH's, no dysdiadochokinesia, steady in Romberg stance Gait: Normal toe/heel/tandem walk Labs: none EEG: none Imaging: none Problem Episodic Tension-Type Headache, Not Intractable Headaches had been more frequent during school year (starting around Mar) and infrequent since the school ended. Also his headaches do not have any migrainous character and localized to top of head even though severe enough to interfere with his functioning. Lifestyle factors were likely contributing to his headaches- inadequate sleep, stress, missing meals and dehydration. His neurological exam is normal and non focal Plan- ?? Lifestyle changes discussed ?? No need for prophylaxis, if needed, will use topiramate or nortriptyline ?? No need for imaging ?? Parents to call with concerns Follow up: 6 month(s) Education: headache precautions This information has been fully discussed with his mother and child and all their questions were answered. I would like to thank you for refrring Harlan Velez III to our neurology clinic. If you have anyquestions, please call [phone]. Sincerely, Flavio Melendez MD 09/23/2015 10:06 AM documented in this encounter Plan of Treatment Not on file documented as of this encounter Visit Diagnoses Diagnosis Tension headache- Primary Episodic tension-type headache, not intractable Episodic tension type headache documented in this encounter Care Teams Recreation Therapy Director Relationship Specialty Start Date End Date Michaelle Jolley, DELIVERER FOOD-PRODUCTION LINE ASSEMBLER [address] [place] [address] PCP - General 01/16/11 documented as of this encounter
--- OUTSIDE RECORDS SUMMARY | 2024-03-22 03:22 | XMS_ITS | Encounter Summary ---
Author Organization [facility] Address [address] [facility] [address] Care Team Providers Care Linen Room Supervisor Name Role Phone Michaelle Jolley MUSHROOM GROWER-RECYCLING ATTENDANT Primary Care Provider + Reason for Visit * Reason Comments Follow-up left clavicle Encounter Details Date Type Department Care Team (Latest Contact Info) Description 02/07/2011 8:53 AM BLINDSTITCH LINING FELLER - 02/07/2011 9:01 AM BLINDSTITCH LINING FELLER Hospital Encounter [facility] Pediatrics - Orthopedics [address] [place] [phone] Светлана Chilel MD Orthopedics Discharge Disposition: Home or Self Care Social History Tobacco Use Types Packs/Day Years Used Date Smoking Tobacco: Never Assessed Sex and Gender Information Value Date Recorded Sex Assigned at Not on file Gender Identity Not on file Sexual Orientation Not on file documented as of this encounter Discharge Instructions * Patient Instructions* Santiago Moreno DO - 02/07/2011 9:17 AM BLINDSTITCH LINING FELLER Encounter Diagnoses Name Primary? Fracture of left clavicle Return appointment: As needed Call [phone], option 1, for return if your child has new symptoms or problems, or if you have concerns. Call [phone] for questions. Physicians orders: none Medications prescribed: none Activity Restrictions: No sports or PE for 3 weeks, then may return to activities as tolerated School/Work Excuse: Patient had an appointment 02/07/2011 DSTITCH LINING FELLER documented in this encounter Progress Notes * Светлана Chilel MD - 02/07/2011 9:16 AM CST Pediatric Orthopedic Clinic Note 02/07/2011 HISTORY: Harlan Velez III is a 10 y.o. 7 m.o. male who presents 3.5 week(s) status post a left clavicle fracture. Harlan Velez III has been treated with nothing and presents today for follow up evaluation. The patient rates his pain as a 0 out of 10. The patient denies new onset of numbness inhis upper extremities. No shoulder pain or limitations in motion. PHYSICAL EXAM: Patient is well-developed, well-nourished and in no acute distress. Examination of the upper extremities shows the skin to be intact. On the affected side, there is no tenting of the skin. The patient is non tender at the clavicle, palpable bump. ROM of the shoulder on the affected side is limited in flexion overhead when compared to the contralateral side. The distal neurovascularexamination is intact in the upper extremities. All fine motor control is intact in the hand - Ableto make an OK, cross fingers, [id number], finger abduction, thumb extension. Sensory to light touch throughout all fingers. RADIOGRAPHS: Two views of the left clavicle show midshaft oblique fracture, shortened <1 cm withbridging callus. ASSESSMENT: left clavicle fracture. PLAN: We recommend the patient discontinue the sling at this time. The patient can resume weight bearing on the affected upper extremity. The patient may resume PE/sports as tolerated in 3 week(s). The patient will follow up only as needed. They will call in the interim with questions or concerns. I have personally seen and evaluated the above patient with the resident. I have discussed the results of the physical exam and all studies with the patient and family. I developed the above plan of care and discussed it with the patient. I have revised the above note and agree with the resident's assessment and plan of care. DSTITCH LINING FELLER documented in this encounter Procedure Notes * Document, Scanned - 04/13/2011 8:55 PM CSTAssociated Order(s): IMAGING/RADIOLOGY/XRAY RESULTS ORDER DSTITCH LINING FELLER documented in this encounter Miscellaneous Notes * Miscellaneous Scans - Document, Scanned - 03/30/2011 10:20 AM CST DSTITCH LINING FELLER * Miscellaneous Scans - Document, Scanned - 03/08/2011 6:03 PM CST DSTITCH LINING FELLER documented in this encounter Plan of Treatment Not on file documented as of this encounter Procedures Procedure Name Priority Date/Time Associated Diagnosis Comments IMAGING/RADIOLOGY/X RAY RESULTS ORDER 04/13/2011 8:55 PM BLINDSTITCH LINING FELLER XR CLAVICLE LEFT 2VW Routine 02/07/2011 9:07 AM BLINDSTITCH LINING FELLER Fracture of left clavicle documented in this encounter Results * IMAGING/RADIOLOGY/XRAY RESULTS ORDER (04/13/2011 8:55 PM BLINDSTITCH LINING FELLER) Anatomical Region Laterality Modality Other Narrative Transcriptions Document, Scanned - 04/13/2011 8:55 PM CST Scanned Document IMAGING * XR CLAVICLE LEFT 2 VIEWS (02/07/2011 9:07 AM BLINDSTITCH LINING FELLER) Anatomical Region Laterality Modality Upper Extremity, Chest Radiograp hic Imaging 02/07/2011 9:20 AM BLINDSTITCH LINING FELLER Impressions 02/07/2011 11:39 AM BLINDSTITCH LINING FELLER Distal left clavicular fracture. D: Domingo Rivera M.D. Narrative 02/07/2011 11:39 AM BLINDSTITCH LINING FELLER Left clavicle, 2 views 02/07/2011 History: Unspecified [...] M.D. Iain Keane MD DIAGNOSTIC IMAGING O ESTRELLITA documented in this encounter Visit Diagnoses Diagnosis Fracture of left clavicle Unspecified part of closed fracture of clavicle documented in this encounter Care Teams Linen Room Supervisor Relationship Specialty Start Date End Date Michaelle Jolley, MUSHROOM GROWER-RECYCLING ATTENDANT [address] [place], [place] [id number] PCP - General 01/16/11 documented as of this encounter
--- OUTSIDE RECORDS SUMMARY | 2024-03-22 03:22 | XMS_ITS | Encounter Summary ---
Author Organization [facility] Address [address] [place] [address] Care Team Providers Care Operations Engineer Name Role Phone Michaelle Jolley SUPERVISOR HARVESTING-CONTACT CENTER PROFESSIONAL Primary Care Provider + Reason for Visit * Reason Comments Headache Encounter Details Date Type Department Care Team (Latest Contact Info) Description 12/23/2015 10:28 AM CDT - 12/23/2015 11:59 PM CDT Hospital Encounter [facility] Pediatrics - Neurology [address] [place] [address] Flavio Melendez MD [address] [place] [phone] Discharge Disposition: Home or Self Care [...] Mass Index 23.72 12/23/2015 10:36 AM CDT Body Mass Index Percentile 88.12% 12/22 10:36 AM CDT Growth Chart: [facility] (Boys, 2-2 0 Years) documented in this encounter Medications at Time of Discharge Medication Sig Dispensed Refills Start Date End Date ibuprofen (MOTRIN) 200 MG tablet Take 400 mg by mouth every 6 hours as needed for Pain documented as of this encounter Progress Notes * Flavio Melendez MD - 12/23/2015 10:49 AM CDT Images from the original note were not included. Patient Name: Harlan Velez III : 2000 Date Seen: 12/23/2015 Chief Complaint: Harlan is a 15 y.o. male who is followed in Neurology clinic for headaches. The child is accompanied to this evaluation today by his mother, who provided the history. Interval History: Harlan has been headache free since the last clinic visit and even after starting school, they have not returned. Review of Systems: General:negative for - fever, fatigue, malaise, night sweats, sleep disturbance Allergy: negative for - asthma, persistent nasal stuffiness or acute or chronic ear discharge Hematological: negative for - bleeding problems, easy bruising, jaundice, pallor, swollen lymph nodes Respiratory: no cough, shortness of breath, or wheezing Cardiovascular: no chest pain or dyspnea on exertion Psychological: negative for - hallucinations, illusions, depressed mood, not taking interest in daily activities, Rheumatological: negative for - weakness,gait disturbance, joint pain Past medical history- Information unchanged and/updated since the last visit on August Family history- Information unchanged and/updated since the last visit on August Current Outpatient Prescriptions Medication Sig Dispense Refill ??? ibuprofen (MOTRIN) 200 MG tablet Take 400 mg by mouth every 6 hours as needed for Pain No current facility-administered medications for this encounter. No Known Allergies Vital Signs: BP 114/76 mmHg Wt 63.4 kg (139 lb 12.4 oz) BMI 23.72 kg/m2 Head Circumference: No head circumference on [...] in all extremities Sensory: Intact to light touch Gait: Normal walk Labs: none EEG: none Imaging: none Problem Episodic Tension-Type Headache, Not Intractable Headaches that were more frequent during last [...] stressed ?? Parents to call with concerns Follow up: PRN Education: Headache precautions This information has been fully discussed with his mother and child and all their questions were answered. I would like to thank you for refrring Harlan Velez III to our neurology clinic. If you have anyquestions, please call [phone]. Sincerely, Flavio Melendez MD 12/23/2015 10:51 AM CC: Michaelle Jolley NP [address] [place] [address] / [place] [id number] documented in this encounter Plan of Treatment Not on file documented as of this encounter Visit Diagnoses Diagnosis Episodic tension-type headache, not intractable- Primary Episodic tension type headache documented in this encounter Care Teams Operations Engineer Relationship Specialty Start Date End Date Michaelle Jolley, SUPERVISOR HARVESTING-CONTACT CENTER PROFESSIONAL [address] [place], [place] [phone] PCP - General 01/16/11 documented as of this encounter
--- OUTSIDE RECORDS SUMMARY | 2024-03-22 03:22 | XMS_ITS | Referral Summary ---
Author Organization [facility] Address [address] [facility] [place] [address] Care Team Providers Care Director Of Strategic Alliances Name Role Phone Michaelle Jolley EXECUTIVE [facility] Primary Care Provider + Source Comments [facility],non-owned Affiliates and Associated Physician Practices is amultiple site organization consisting of ambulatory clinics and hospital sitesin [place], [place], [place] and [place]. This disclosure is being madepursuant to the Care Everywhere program and may not contain all information available regarding this patient. Last updated 17.[facility] Reflex Allergies No known active allergies Medications * [...] stressed ?? Parents to call with concerns Social History Tobacco Use Types Packs/Day Years [...] 12/23/2015 10:36 AM CDT Plan of Treatment Not on file Care Teams Director Of Strategic Alliances Relationship Specialty Start Date End Date Michaelle Jolley, EXECUTIVE [facility] [address] [place] [address] PCP - General 01/16/11
--- OUTSIDE RECORDS SUMMARY | 2024-03-22 03:49 | XMS_ITS | Encounter Summary ---
Author Organization [facility] Address [address] [facility] [place] [address] Care Team Providers Care Skiving Machine Operator Name Role Phone Michaelle Jolley HEAD REFRIGERATION ENGINEER-VP ANALYSIS Primary Care Provider + Reason for Visit * Reason Comments Headache c/o headaches for a couplke months, was c/o headaches everyday, stoppd a couple weeks ago Encounter Details Date Type Department Care Team (Latest Contact Info) Description 09/23/2015 8:31 AM CDT - 09/23/2015 11:59 PM CDT Hospital Encounter [facility] Pediatrics - Neurology [address] [place] [phone] Flavio Melendez MD [address] [place] [phone] Discharge Disposition: Home or Self Care [...] of this encounter H&P Notes * Flavio Mleendez MD - 09/23/2015 10:06 AM CDT Patient [...] clinic. If you have anyquestions, please call [phone]. Sincerely, Flavio Melendez MD 09/23/2015 10:06 AM documented in this encounter Plan of Treatment Not on file documented as of this encounter Visit Diagnoses Diagnosis Tension headache- Primary Episodic tension-type headache, not intractable Episodic tension type headache documented in this encounter Care Teams Skiving Machine Operator Relationship Specialty Start Date End Date Michaelle Jolley, HEAD REFRIGERATION ENGINEER-VP ANALYSIS [address] [place] [address] PCP - General 01/16/11 documented as of this encounter
--- OUTSIDE RECORDS SUMMARY | 2024-03-22 03:49 | XMS_ITS | Clinical Summary ---
Author Organization [facility] Address [address] [place] [address] Care Team Providers Care Adjunct Writing Instructor Name Role Phone Michaelle Jolley OPERATIONS PLANT ATTENDANT-MOTION PICTURE ACTOR Primary Care Provider + Source Comments [facility],non-owned Affiliates and Associated Physician Practices is amultiple site organization consisting of ambulatory clinics and hospital sitesin [place], [place], [place] and [place]. This disclosure is being madepursuant to the Care Everywhere program and may not contain all information available regarding this patient. Last updated 17.[facility] Allergies No known active allergies Medications * [...] age to complete this topic Care Teams Adjunct Writing Instructor Relationship Specialty Start Date End Date Michaelle Jolley, OPERATIONS PLANT ATTENDANT-MOTION PICTURE ACTOR [facility] [place] [address] PCP - General 01/16/11
--- OUTSIDE RECORDS SUMMARY | 2024-03-22 03:49 | XMS_ITS | Referral Summary ---
Author Organization [facility] Address [address] [facility] [place] [address] Care Team Providers Care Scrap Handler Name Role Phone Michaelle Jolley STATION ENGINEER CHIEF-FILLER MIXER Primary Care Provider + Source Comments [facility],non-owned Affiliates and Associated Physician Practices is amultiple site organization consisting of ambulatory clinics and hospital sitesin [place], [place], [place] and [place]. This disclosure is being madepursuant to the Care Everywhere program and may not contain all information available regarding this patient. Last updated 17.[facility] [employer] Allergies No known active allergies Medications * [...] of Treatment Not on file Care Teams Scrap Handler Relationship Specialty Start Date End Date Michaelle Jolley, STATION ENGINEER CHIEF-FILLER MIXER [address] [place] [id number] PCP - General 01/16/11
--- OUTSIDE RECORDS SUMMARY | 2024-03-22 03:49 | XMS_ITS | Continuity of Care Document ---
Author Organization [facility] Address [address] [place] [address] [address] [place] [address] Phone Care Team Providers Care Skidder Operator Name Role Phone Quezada OD, Fab Unavailable Unavailable Procedures Procedure Date Eye Exam & Treatment Refraction Eye Exam, New Patient Advance Directives Directive Yes / No Effective Date File Name No Information Encounters Encounter Description Practice Location Reason(s) For Visit Diagnoses Date Provider Providers Copied on Encounter [facility], [address] [place] [address] [address], [place], [place], [id number], tel:[phone] [address] [facility] No Information 3-200 9 Quezada OD Fab. [address] [facility] , [address], [place], [place], [facility], [place]. tel:[phone] [facility], [address] [place] [address] [address], [place], [place], [id number], tel:[phone] [address] [facility] No Information 6-200 7 Quezada OD Fab. [address] [facility] , [address], [place], [address], [place]. tel:[phone] Family History Family Member Type Diagnosis Age At Onset No Information Payers Payer name Insurance type Covered alliance party ID Authoriza tion(s) Medicaid [facility] [id number] Social History Type Description Quantity Date Captured [...]
--- OUTSIDE RECORDS SUMMARY | 2024-03-22 03:49 | XMS_ITS | Patient Health Summary ---
Author Organization [facility] Address [address] [place] [address] Care Team Providers Care Tie Mill Operator Name Role Phone Michaelle Jolley HEAD RIGGER-DEHYDRATOR Primary Care Provider + Note from [facility],non-owned Affiliates and Associated Physician Practices is amultiple site organization consisting of ambulatory clinics and hospital sitesin [place], [place], [place]. This disclosure is being madepursuant to the Care Everywhere program and may not contain all information available regarding this patient. Last updated 17.[facility] Allergies No known active allergies [...] * IMAGING/RADIOLOGY/XRAY RESULTS ORDER (04/13/2011 8:55 PM WOOD MACHINE CARVER) Anatomical Region Laterality Modality Other Narrative Transcriptions Document, Scanned - 04/13/2011 8:55 PM CST Scanned Document IMAGING * XR CLAVICLE LEFT 2 VIEWS (02/07/2011 9:07 AM WOOD MACHINE CARVER) Anatomical Region Laterality Modality Upper Extremity, Chest Radiograp hic Imaging 02/07/2011 9:20 AM WOOD MACHINE CARVER Impressions 02/07/2011 11:39 AM WOOD MACHINE CARVER Distal left clavicular fracture. D: Domingo Rivera M.D. Narrative 02/07/2011 11:39 AM WOOD MACHINE CARVER Left clavicle, 2 views 02/07/2011 History: Unspecified [...] MD DIAGNOSTIC IMAGING O RDERABLES Care Teams Tie Mill Operator Relationship Specialty Start Date End Date Michaelle Jolley, HEAD RIGGER-DEHYDRATOR [address] [place] [address] PCP - General 01/16/11
--- OUTSIDE RECORDS SUMMARY | 2024-03-22 03:49 | XMS_ITS | Encounter Summary ---
Author Organization [facility] Address [address] [facility] [place] [address] Care Team Providers Care Medicare Nurse Name Role Phone Michaelle Jolley VENEER PRODUCTION MACHINE OPERATOR-INTERPERSONAL COMMUNICATIONS PROFESSOR Primary Care Provider + Reason for Visit * Reason Comments Establish Care left shoulder Encounter Details Date Type Department Care Team (Latest Contact Info) Description 01/17/2011 9:35 AM CDT - 01/17/2011 11:59 PM CDT Hospital Encounter [facility] Pediatrics - Orthopedics [address] [place] [id number] Свтелана Chilel MD Orthopedics Discharge Disposition: Home or [...] Clavicle Fracture Return appointment: 3-4 weeks Call [phone], option 1, for return if your child has new symptoms or problems, or if you have concerns. Call [phone] for questions. Physicians orders: none Medications prescribed: [...] Able to make an OK, cross fingers, [id number], finger abduction, thumb extension. Sensory to light [...] Document, Scanned - 02/23/2011 8:29 PM CST MERIZATION KETTLE OPERATOR documented in this encounter Plan of Treatment Not on file documented as of this encounter Visit Diagnoses Diagnosis Unspecified part of closed fracture of clavicle documented in this encounter Care Teams Medicare Nurse Relationship Specialty Start Date End Date Michaelle Jolley, VENEER PRODUCTION MACHINE OPERATOR-INTERPERSONAL COMMUNICATIONS PROFESSOR [address] [place] [address] PCP - General 01/16/11 documented as of this encounter
--- OUTSIDE RECORDS SUMMARY | 2024-03-22 03:49 | XMS_ITS | Encounter Summary ---
Author Organization [facility] Address [address] [facility] [place] [address] Care Team Providers Care Ship'S Captain Name Role Phone Michaelle Jolley POLITICAL SCIENCE PROFESSOR-FREIGHT RATE SPECIALIST Primary Care Provider + Reason for Visit * Reason Comments Headache Encounter Details Date Type Department Care Team (Latest Contact Info) Description 12/23/2015 10:28 AM CDT - 12/23/2015 11:59 PM CDT Hospital Encounter [facility] Pediatrics - Neurology [address] [place] [phone] Flavio Melendez MD [address] [place] [phone] Discharge Disposition: Home or Self Care [...] 88.12% 12/22 10:36 AM CDT Growth Chart: [facility] (Boys, 2-2 0 Years) documented in this [...] clinic. If you have anyquestions, please call [phone]. Sincerely, Flavio Melendez MD 12/23/2015 10:51 AM CC: Michaelle Jolley NP [address] [place] [address] / [place] [id number] documented in this encounter Plan of Treatment Not on file documented as of this encounter Visit Diagnoses Diagnosis Episodic tension-type headache, not intractable- Primary Episodic tension type headache documented in this encounter Care Teams Ship'S Captain Relationship Specialty Start Date End Date Michaelle Jolley, POLITICAL SCIENCE PROFESSOR-FREIGHT RATE SPECIALIST [address] [place], [place] [phone] PCP - General 01/16/11 documented as of this encounter
--- OUTSIDE RECORDS SUMMARY | 2024-03-22 03:49 | XMS_ITS | Encounter Summary ---
Author Organization [facility] Address [address] [place] [address] Care Team Providers Care Vending Machine Refiller Name Role Phone Michaelle Jolley COMMUNITY MARKETING COORDINATOR-HANDYMAN Primary Care Provider + Encounter Details Date Type Department Care Team (Latest Contact Info) Description 02/07/2011 9:02 AM CHIEF ELECTRICIAN - 02/07/2011 11:59 PM CHIEF ELECTRICIAN Hospital Encounter [facility] Pediatrics - Radiology [address] [place] [address] Discharge Disposition: Home or Self Care Social [...] CLAVICLE LEFT 2VW Routine 02/07/2011 9:07 AM CHIEF ELECTRICIAN Fracture of left clavicle documented in this encounter Results * XR CLAVICLE LEFT 2 VIEWS (02/07/2011 9:07 AM CHIEF ELECTRICIAN) Anatomical Region Laterality Modality Upper Extremity, Chest Radiograp hic Imaging 02/07/2011 9:20 AM CHIEF ELECTRICIAN Impressions 02/07/2011 11:39 AM CHIEF ELECTRICIAN Distal left clavicular fracture. D: Domingo Rivera M.D. Narrative 02/07/2011 11:39 AM CHIEF ELECTRICIAN Left clavicle, 2 views 02/07/2011 History: Unspecified [...] on filedocumented in this encounter Care Teams Vending Machine Refiller Relationship Specialty Start Date End Date Michaelle Jolley, COMMUNITY MARKETING COORDINATOR-HANDYMAN [address] [place], [place] [phone] PCP - General 01/16/11 documented as of this encounter
--- OUTSIDE RECORDS SUMMARY | 2024-03-22 03:49 | XMS_ITS | Encounter Summary ---
Author Organization [facility] Address [address] [facility] [facility] [place] [address] Care Team Providers Care Systems Analyst Developer Name Role Phone Michaelle Jolley HOGSHEAD DUMPER-AVIONICS ENGINEER Primary Care Provider + Reason for Visit * Reason Comments Follow-up left clavicle Encounter Details Date Type Department Care Team (Latest Contact Info) Description 02/07/2011 8:53 AM COMPUTATIONAL MATHEMATICIAN - 02/07/2011 9:01 AM COMPUTATIONAL MATHEMATICIAN Hospital Encounter [facility] Pediatrics - Orthopedics [address] [place] [id number] Светлана Chilel MD Orthopedics Discharge Disposition: Home or Self Care Social History Tobacco Use Types Packs/Day Years Used Date Smoking Tobacco: Never Assessed Sex and Gender Information Value Date Recorded Sex Assigned at Not on file Gender Identity Not on file Sexual Orientation Not on file documented as of this encounter Discharge Instructions * Patient Instructions* Santiago Moreno DO - 02/07/2011 9:17 AM COMPUTATIONAL MATHEMATICIAN Encounter Diagnoses Name Primary? Fracture of left clavicle Return appointment: As needed Call [phone], option 1, for return if your child has new symptoms or problems, or if you have concerns. Call [phone] for questions. Physicians orders: none Medications prescribed: none Activity Restrictions: No sports or PE for 3 weeks, then may return to activities as tolerated School/Work Excuse: Patient had an appointment 02/07/2011 UTATIONAL MATHEMATICIAN documented in this encounter Progress Notes * [...] - Ableto make an OK, cross fingers, [id number], finger abduction, thumb extension. Sensory to light [...] the resident's assessment and plan of care. UTATIONAL MATHEMATICIAN documented in this encounter Procedure Notes * Document, Scanned - 04/13/2011 8:55 PM CSTAssociated Order(s): IMAGING/RADIOLOGY/XRAY RESULTS ORDER UTATIONAL MATHEMATICIAN documented in this encounter Miscellaneous Notes * Miscellaneous Scans - Document, Scanned - 03/30/2011 10:20 AM CST UTATIONAL MATHEMATICIAN * Miscellaneous Scans - Document, Scanned - 03/08/2011 6:03 PM CST UTATIONAL MATHEMATICIAN documented in this encounter Plan of Treatment Not on file documented as of this encounter Procedures Procedure Name Priority Date/Time Associated Diagnosis Comments IMAGING/RADIOLOGY/X RAY RESULTS ORDER 04/13/2011 8:55 PM COMPUTATIONAL MATHEMATICIAN XR CLAVICLE LEFT 2VW Routine 02/07/2011 9:07 AM COMPUTATIONAL MATHEMATICIAN Fracture of left clavicle documented in this encounter Results * IMAGING/RADIOLOGY/XRAY RESULTS ORDER (04/13/2011 8:55 PM COMPUTATIONAL MATHEMATICIAN) Anatomical Region Laterality Modality Other Narrative Transcriptions Document, Scanned - 04/13/2011 8:55 PM CST Scanned Document IMAGING * XR CLAVICLE LEFT 2 VIEWS (02/07/2011 9:07 AM COMPUTATIONAL MATHEMATICIAN) Anatomical Region Laterality Modality Upper Extremity, Chest Radiograp hic Imaging 02/07/2011 9:20 AM COMPUTATIONAL MATHEMATICIAN Impressions 02/07/2011 11:39 AM COMPUTATIONAL MATHEMATICIAN Distal left clavicular fracture. D: Domingo Rivera M.D. Narrative 02/07/2011 11:39 AM COMPUTATIONAL MATHEMATICIAN Left clavicle, 2 views 02/07/2011 History: Unspecified [...] clavicle documented in this encounter Care Teams Systems Analyst Developer Relationship Specialty Start Date End Date Michaelle Jolley, HOGSHEAD DUMPER-AVIONICS ENGINEER [address] [place], [place] [phone] PCP - General 01/16/11 documented as of this encounter
== END 2024-03-15 09:48 | disposition home or self-care (01) ==
PROVIDERS: Emergency Medicine; Emergency Provider Emergency Medicine; PCP Emergency Medicine
DX: K21.9 Gastro-esophageal reflux disease without esophagitis (principal)
CPT/HCPCS: 36415; 80053; 81001; 83690; 99283; A9270